=== PATIENT | female | born 1975 | race Caucasian/White ===

== ENCOUNTER 2016-10-05 21:44 | Emergency (ER) | payer OTHER ==
[2016-10-05] MEDS ORDERED: HYDROmorphone 1 MG/ML 1 ML SYRINGE IVP STA ×2 (22:26→23:46)
[2016-10-05] MEDS ORDERED: ONDANSETRON 4 MG/2 ML VIAL IVP STA (22:27)
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
[2016-10-05 22:32] VITALS: TEMP 97.7
--- NOTE | 2016-10-05 23:14 | XR ---
EXAMINATION TYPE: XR chest 2V DATE OF EXAM: 10/05/2016 11:09 PM COMPARISON: NONE HISTORY: Cough and bronchitis TECHNIQUE: Frontal and lateral views of the chest are obtained. FINDINGS: There is no heart failure nor confluent pneumonic infiltrate. There are no hilar masses. C ostophrenic angles are clear. Bony thorax appears intact. IMPRESSION: No active cardiopulmonary disease.
--- NOTE | 2016-10-05 23:15 | XR ---
EXAMINATION TYPE: XR tibia fibula RT DATE OF EXAM: 10/05/2016 11:09 PM COMPARISON: NONE HISTORY: Leg pain TECHNIQUE: 4 views FINDINGS: There is a transverse fracture of the proximal shaft of the tibia. This is 3 cm from the kn ee joint and fracture line also extends to the articular surface. There is a knee joint effusion. Pro ximal fibula is intact. IMPRESSION: Comminuted fracture of the proximal tibia with intra-articular extension. Knee joint effu lyudmila.
[2016-10-05] MEDS ORDERED: SODIUM CHLORIDE 0.9% 1,000 ML IV SCH (23:45)
[2016-10-05 23:51] LABS: Basophils % (A) 0 %; CH 28.3; CHCM 32.2; Eosinophils # (A) 0.1 k/uL (0-0.7); Eosinophils % (A) 1 %; HCT 36.9 % (34.0-46.0); HDW 2.77; HGB 11.8 gm/dL (11.4-16.0); Luc # (Auto) 0.05; Luc % (Auto) 0; Lymphocytes # (A) 0.5 k/uL (1.0-4.8); Lymphocytes % (A) 3 %; MCH 28.3 pg (25.0-35.0); MCV 88.3 fL (80.0-100.0); Mean Platelet Volume 7.6; Monocytes # (A) 0.5 k/uL (0-1.0); Monocytes % (A) 3 %; Neutrophils # (A) 15.3 k/uL (1.3-7.7); Neutrophils % (A) 93 %; RBC 4.18 m/uL (3.80-5.40); WBC 16.4 k/uL (3.8-10.6); WBC (Perox) 17.43
[2016-10-06 00:02] LABS: Anion Gap 12 mmol/L; Blood Urea Nitrogen 9 mg/dL (7-17); Calcium 9.3 mg/dL (8.4-10.2); Carbon Dioxide 22 mmol/L (22-30); Chloride 107 mmol/L (98-107); Glucose 117 mg/dL (74-99); Non-African American GFR(MDRD) >60 (>60 ml/min/1.73 sqM); Potassium 4.3 mmol/L (3.5-5.1); Sodium 141 mmol/L (137-145)
[2016-10-06 00:09] VITALS: BP 166/97; PULSE 70; RESP 14
== END 2016-10-06 00:25 ==
LOC: EC 21:44
DX: S82.101A Unspecified fracture of upper end of right tibia, initial encounter for closed fracture (principal); I10 Essential (primary) hypertension; M19.90 Unspecified osteoarthritis, unspecified site; F31.9 Bipolar disorder, unspecified; M54.9 Dorsalgia, unspecified; Z79.899 Other long term (current) drug therapy; Z88.1 Allergy status to other antibiotic agents; F17.200 Nicotine dependence, unspecified, uncomplicated; V03.09XA Pedestrian with other conveyance injured in collision with car, pick-up truck or van in nontraffic accident, initial encounter; Y93.01 Activity, walking, marching and hiking; Y92.414 Local residential or business street as the place of occurrence of the external cause; Z79.1 Long term (current) use of non-steroidal anti-inflammatories (NSAID); M25.461 Effusion, right knee
CPT/HCPCS: 96374 ×2; 96375; 36415; 93005; 80048; 85025; 71020; 73590; 99285; J2405; J1170 ×2

== ENCOUNTER 2016-10-10 17:56 | Emergency (ER) | payer SELFPAY ==
[2016-10-10 18:03] VITALS: RESP 20
[2016-10-10] MEDS ORDERED: HYDROmorphone 1 MG/ML 1 ML SYRINGE IM STA ×2 (18:21→20:08)
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
--- NOTE | 2016-10-10 19:15 | XR ---
EXAMINATION TYPE: XR tibia fibula RT DATE OF EXAM: 10/10/2016 7:10 PM COMPARISON: 10/05/2016 HISTORY: Postop TECHNIQUE: 4 views FINDINGS: There is a plate with screws fixing the comminuted proximal tibial fracture in anatomic pos ition. Ankle joint is anatomic. Knee joint is anatomic. IMPRESSION: Satisfactory reduction of the comminuted tibial fracture. I see no complicating process.
--- NOTE | 2016-10-10 19:17 | XR ---
EXAMINATION TYPE: XR knee complete RT DATE OF EXAM: 10/10/2016 7:10 PM COMPARISON: 10/05/2016 HISTORY: Postop and fall today TECHNIQUE: 3 views FINDINGS: There is a plate with multiple screws fixing the comminuted fracture of the proximal tibia in anatomic position. There is no dislocation there is a knee joint effusion. IMPRESSION: Anatomic reduction. I see no complicating process. There is satisfactory reduction compar ed to first exam.
[2016-10-10 20:58] VITALS: BP 112/66; PULSE 102; TEMP 97.2
== END 2016-10-10 20:58 | disposition home or self-care (01) ==
LOC: EC 17:56
DX: M79.604 Pain in right leg (principal); W19.XXXA Unspecified fall, initial encounter; S82.201A Unspecified fracture of shaft of right tibia, initial encounter for closed fracture; V09.9XXA Pedestrian injured in unspecified transport accident, initial encounter; Z98.890 Other specified postprocedural states; I10 Essential (primary) hypertension; F31.9 Bipolar disorder, unspecified; M19.90 Unspecified osteoarthritis, unspecified site; F17.200 Nicotine dependence, unspecified, uncomplicated; Z79.1 Long term (current) use of non-steroidal anti-inflammatories (NSAID); Z79.899 Other long term (current) drug therapy; Z88.1 Allergy status to other antibiotic agents
CPT/HCPCS: 73590; 73562; 99284; 96372 ×2; J1170

== ENCOUNTER 2016-12-13 11:19 | Emergency (ER) | payer SELFPAY ==
[2016-12-13] MEDS ORDERED: SODIUM CHLORIDE 0.9% 1,000 ML IV STA ×2 (11:57)
[2016-12-13] MEDS ORDERED: HYDROmorphone 1 MG/ML 1 ML SYRINGE IVP STA ×3 (11:57→13:54)
[2016-12-13] MEDS ORDERED: ACETAMINOPHEN TAB 500 MG TAB PO STA (11:57)
[2016-12-13] MEDS ORDERED: VANCOMYCIN 1,000 MG in SODIUM CHLORIDE 0.9% 250 ML IVPB STA (11:58)
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
[2016-12-13 12:20] LABS: Anisocytosis Slight; Basophils % (A) 0 %; CH 26.8; CHCM 31.2; Eosinophils # (A) 0.1 k/uL (0-0.7); Eosinophils % (A) 1 %; HCT 34.1 % (34.0-46.0); HDW 2.75; Hypochromasia Slight; Luc # (Auto) 0.11; Luc % (Auto) 1; Lymphocytes # (A) 0.3 k/uL (1.0-4.8); Lymphocytes % (A) 2 %; MCH 27.7 pg (25.0-35.0); MCHC 32.2 g/dL (31.0-37.0); Monocytes # (A) 0.5 k/uL (0-1.0); Monocytes % (A) 3 %; Neutrophils # (A) 15.2 k/uL (1.3-7.7); Neutrophils % (A) 94 %; RBC 3.96 m/uL (3.80-5.40); RDW 17.2 % (11.5-15.5); WBC 16.2 k/uL (3.8-10.6); WBC (Perox) 17.12
[2016-12-13 12:32] LABS: ALT 195 U/L (9-52); AST 123 U/L (14-36); Alkaline Phosphatase 146 U/L (38-126); Anion Gap 10 mmol/L; Blood Urea Nitrogen 9 mg/dL (7-17); Calcium 9.1 mg/dL (8.4-10.2); Carbon Dioxide 20 mmol/L (22-30); Chloride 104 mmol/L (98-107); Glucose 122 mg/dL (74-99); Non-African American GFR(MDRD) >60 (>60 ml/min/1.73 sqM); Sodium 134 mmol/L (137-145); Total Protein 6.8 g/dL (6.3-8.2)
[2016-12-13 12:34] LABS: INR 1.6 (<1.1); Partial Thromboplastin Time 31.6 sec (22.0-30.0); Prothrombin Time 15.4 sec (9.0-12.0)
--- NOTE | 2016-12-13 12:54 | XR ---
EXAMINATION TYPE: XR tibia fibula RT DATE OF EXAM ORDERED: 12/13/2016 12:44 PM HISTORY: Pain. COMPARISON: Previous study dated 10/10/2016. FINDINGS: Sideplate and screw fixation of the proximal right tibia appear unchanged from previous. T here is a comminuted fracture the proximal tibia. This appears unchanged from previous. Fracture line s are still clearly visible. There is some mild callus formation. IMPRESSION: 1. NO INTERVAL CHANGE IN THE APPEARANCE OF THE PATIENT'S PROXIMAL TIBIAL FRACTURE. 2. RADIOGRAPHIC BONE UNION IS NOT YET COMPLETE.
--- NOTE | 2016-12-13 12:55 | XR ---
EXAMINATION TYPE: XR chest 2V DATE OF EXAM: 12/13/2016 12:44 PM HISTORY: Weakness. REFERENCE: Previous study dated 10/05/2016. FINDINGS: Mildly enlarged. The lungs are clear. Pleural spaces are clear.. IMPRESSION: CARDIOMEGALY.
[2016-12-13 13:03] LABS: C Reactive Protein 165.9 mg/L (<10.0)
[2016-12-13 13:07] LABS: Erythrocyte Sedimentation Rate 32 mm/hr (0-20)
[2016-12-13 13:18] VITALS: PULSE 98; TEMP 99.1
[2016-12-13 14:03] VITALS: BP 116/74; RESP 18
== END 2016-12-13 14:03 | disposition short-term general hospital (02) ==
LOC: EC 11:19
DX: T81.4XXA Infection following a procedure, initial encounter (principal); M96.671 Fracture of tibia or fibula following insertion of orthopedic implant, joint prosthesis, or bone plate, right leg; I10 Essential (primary) hypertension; M19.90 Unspecified osteoarthritis, unspecified site; F31.9 Bipolar disorder, unspecified; F17.200 Nicotine dependence, unspecified, uncomplicated; Z79.1 Long term (current) use of non-steroidal anti-inflammatories (NSAID); Z79.899 Other long term (current) drug therapy; Z88.1 Allergy status to other antibiotic agents; Z98.890 Other specified postprocedural states; Y83.8 Other surgical procedures as the cause of abnormal reaction of the patient, or of later complication, without mention of misadventure at the time of the procedure
CPT/HCPCS: 99285; 96365; 96375; 96376; 96361; 36415; 80053; 85652; 83605; 85025; 85610; 85730; 86140; 87040; 87070; 87205; 71020; 73590; J3370; J1170; 87077; 87186

== ENCOUNTER 2016-12-31 20:08 | Emergency (ER) | payer OTHER ==
[2016-12-31 20:31] VITALS: RESP 18
[2016-12-31 21:35] LABS: Anisocytosis Slight; Basophils # (A) 0.1 k/uL (0-0.2); Basophils % (A) 1 %; CH 25.2; CHCM 29.9; Eosinophils # (A) 0.3 k/uL (0-0.7); Eosinophils % (A) 3 %; HCT 28.8 % (34.0-46.0); Hypochromasia Marked; Luc # (Auto) 0.32; Luc % (Auto) 4; Lymphocytes # (A) 1.8 k/uL (1.0-4.8); Lymphocytes % (A) 19 %; MCH 26.2 pg (25.0-35.0); MCHC 31.1 g/dL (31.0-37.0); MCV 84.2 fL (80.0-100.0); Mean Platelet Volume 6.8; Monocytes # (A) 0.8 k/uL (0-1.0); Monocytes % (A) 8 %; Neutrophils % (A) 65 %; RBC 3.42 m/uL (3.80-5.40); RDW 17.1 % (11.5-15.5); WBC 9.2 k/uL (3.8-10.6)
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
[2016-12-31 21:46] LABS: ALT 20 U/L (9-52); AST 28 U/L (14-36); Alkaline Phosphatase 156 U/L (38-126); Anion Gap 7 mmol/L; Blood Urea Nitrogen 3 mg/dL (7-17); Calcium 9.1 mg/dL (8.4-10.2); Carbon Dioxide 26 mmol/L (22-30); Chloride 104 mmol/L (98-107); Glucose 87 mg/dL (74-99); Non-African American GFR(MDRD) >60 (>60 ml/min/1.73 sqM); Potassium 3.7 mmol/L (3.5-5.1); Sodium 137 mmol/L (137-145); Total Bilirubin 0.5 mg/dL (0.2-1.3)
[2016-12-31] MEDS ORDERED: SODIUM CHLORIDE 0.9% 1,000 ML IV ONE (22:01)
[2016-12-31] MEDS ORDERED: traMADol 50 MG TAB PO STA (22:09)
[2016-12-31 22:53] LABS: Appearance,Urine Clear (Clear); Bilirubin,Urine Negative (Negative); Glucose,Urine (UA) Negative (Negative); Ketones,Urine Negative (Negative); Leukocyte Esterase,Urine Negative (Negative); Nitrite,Urine Negative (Negative); Protein,Urine Negative (Negative); Specific Gravity,Urine 1.002 (1.001-1.035); UA Billing (MACRO vs. MICRO) CHEM; Urobilinogen,Urine <2.0 mg/dL (<2.0)
--- NOTE | 2017-01-01 00:38 | CT ---
EXAM: CT Lumbar Spine Without Intravenous Contrast. CLINICAL HISTORY: Reason: Pain TECHNIQUE: Axial computed tomography images of the lumbar spine without intravenous contrast. CTDI is 19.3 mGy and DLP is 537.6 mGy-cm This CT exam was performed using one or more of the following dose reduction techniques: automated exposure control, adjustment of the mA and/or kV according to patient size, and/or use of iterative reconstruction technique. COMPARISON: No relevant prior studies available. FINDINGS: Vertebrae: No acute fracture, dislocation, or subluxation within the lumbar spine. No osseous destructive lesion. At L4-L5, there is at least a mild degree of central canal stenosis secondary to diffuse bulging of the intervertebral disc as well as mild ligamentum flavum redundancy and posterior epidural lipomatosis. At L3-L4, there is a broad-based left foraminal disc protrusion which causes moderate narrowing of the neural foramina and flattens the exiting left L3 nerve root. Discs/spinal canal/neural foramina: See above. Soft tissues: See above. IMPRESSION: 1. No acute findings. 2. Left foraminal disc protrusion at L3-L4 which moderately narrows the neural foramen and causes flattening of the exiting left L3 nerve root. 3. At least a mild degree of degenerative central canal stenosis at L4- L5.
[2017-01-01 01:43] VITALS: BP 137/83; PULSE 77; TEMP 98.1
== END 2017-01-01 01:55 | disposition home or self-care (01) ==
LOC: EC 20:08
DX: R19.7 Diarrhea, unspecified (principal); R32 Unspecified urinary incontinence; I10 Essential (primary) hypertension; M19.90 Unspecified osteoarthritis, unspecified site; F31.9 Bipolar disorder, unspecified; F17.200 Nicotine dependence, unspecified, uncomplicated; Z79.1 Long term (current) use of non-steroidal anti-inflammatories (NSAID); Z79.899 Other long term (current) drug therapy; Z88.1 Allergy status to other antibiotic agents; Z87.81 Personal history of (healed) traumatic fracture
CPT/HCPCS: 36415; 72131; 80053; 80306; 81003; 82272; 85025; 96360; 99284

== ENCOUNTER 2017-01-11 15:17 | Emergency (ER) | payer OTHER ==
[2017-01-11] MEDS ORDERED: HYDROmorphone 1 MG/ML 1 ML SYRINGE IVP STA ×2 (16:01→18:10)
[2017-01-11 16:15] LABS: Anisocytosis Slight; Basophils # (A) 0.1 k/uL (0-0.2); Basophils % (A) 1 %; CH 24.7; CHCM 29.9; Eosinophils # (A) 0.1 k/uL (0-0.7); Eosinophils % (A) 1 %; HDW 3.48; Hypochromasia Marked; Luc # (Auto) 0.21; Luc % (Auto) 2; Lymphocytes # (A) 1.4 k/uL (1.0-4.8); Lymphocytes % (A) 14 %; MCH 24.9 pg (25.0-35.0); MCHC 30.1 g/dL (31.0-37.0); MCV 82.5 fL (80.0-100.0); Monocytes # (A) 0.6 k/uL (0-1.0); Monocytes % (A) 6 %; Neutrophils # (A) 7.3 k/uL (1.3-7.7); Neutrophils % (A) 76 %; Poikilocytosis Slight; RDW 16.8 % (11.5-15.5); WBC 9.6 k/uL (3.8-10.6); WBC (Perox) 9.35
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
[2017-01-11 16:25] LABS: Anion Gap 12 mmol/L; Blood Urea Nitrogen 7 mg/dL (7-17); Calcium 9.4 mg/dL (8.4-10.2); Carbon Dioxide 20 mmol/L (22-30); Chloride 112 mmol/L (98-107); Glucose 138 mg/dL (74-99); Magnesium 1.8 mg/dL (1.6-2.3); Non-African American GFR(MDRD) >60 (>60 ml/min/1.73 sqM); Potassium 3.6 mmol/L (3.5-5.1); Sodium 144 mmol/L (137-145)
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
[2017-01-11 16:39] LABS: C Reactive Protein <5.0 mg/L (<10.0)
[2017-01-11] MEDS ORDERED: SODIUM CHLORIDE 0.9% 1,000 ML IV STA ×2 (16:40)
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
[2017-01-11 17:10] LABS: Erythrocyte Sedimentation Rate 53 mm/hr (0-20)
[2017-01-11 19:57] VITALS: BP 162/100; PULSE 89; RESP 16; TEMP 97.5
== END 2017-01-11 19:57 | disposition home or self-care (01) ==
LOC: EC 15:17
DX: M79.604 Pain in right leg (principal); I10 Essential (primary) hypertension; M19.90 Unspecified osteoarthritis, unspecified site; F31.9 Bipolar disorder, unspecified; F17.200 Nicotine dependence, unspecified, uncomplicated; Z79.899 Other long term (current) drug therapy; Z88.1 Allergy status to other antibiotic agents; Z87.81 Personal history of (healed) traumatic fracture
CPT/HCPCS: 99284; 96374; 96376; 36415; 80048; 85652; 83605; 83735; 85025; 86140; 87040; 87077; 87186; 73590; 93971; J1170

== ENCOUNTER 2017-01-19 10:02 | Emergency (ER) | payer SELFPAY ==
[2017-01-19 10:35] VITALS: RESP 18
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
[2017-01-19 11:55] VITALS: BP 161/100; PULSE 88; TEMP 97.4
== END 2017-01-19 11:53 | disposition home or self-care (01) ==
LOC: EC 10:02
DX: M25.561 Pain in right knee (principal); G89.29 Other chronic pain; I10 Essential (primary) hypertension; M19.90 Unspecified osteoarthritis, unspecified site; F31.9 Bipolar disorder, unspecified; F17.200 Nicotine dependence, unspecified, uncomplicated; Z88.1 Allergy status to other antibiotic agents; Z79.1 Long term (current) use of non-steroidal anti-inflammatories (NSAID); Z79.899 Other long term (current) drug therapy
CPT/HCPCS: 99283

== ENCOUNTER 2017-01-24 15:51 | Emergency (ER) | payer SELFPAY ==
[2017-01-24] MEDS ORDERED: HYDROmorphone 1 MG/ML 1 ML SYRINGE IVP STA (16:48)
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
[2017-01-24 18:05] VITALS: TEMP 98.5
[2017-01-24 18:38] VITALS: BP 180/108; PULSE 94; RESP 18
== END 2017-01-24 18:36 | disposition home or self-care (01) ==
LOC: EC 15:51
DX: M25.571 Pain in right ankle and joints of right foot (principal); I10 Essential (primary) hypertension; M19.90 Unspecified osteoarthritis, unspecified site; F41.9 Anxiety disorder, unspecified; Z88.1 Allergy status to other antibiotic agents; Z79.1 Long term (current) use of non-steroidal anti-inflammatories (NSAID); Z79.899 Other long term (current) drug therapy
CPT/HCPCS: 99283; 96374; J1170

== ENCOUNTER 2017-03-28 16:57 | Emergency (ER) | payer OTHER ==
[2017-03-28] MEDS ORDERED: HYDROmorphone 1 MG/ML 1 ML SYRINGE IM STA (17:40)
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
--- NOTE | 2017-03-28 18:49 | XR ---
EXAMINATION TYPE: XR knee complete RT DATE OF EXAM: 03/28/2017 COMPARISON: 10/10/2016 HISTORY: Pain TECHNIQUE: 3 views FINDINGS: There is a plate with screws fixing old fracture of the proximal tibia. Fragments are in re asonable anatomic position. There is satisfactory healing compared to last exam. I see no acute fract ure. There is mild knee joint effusion. IMPRESSION: Mild knee joint effusion. Healing fracture of the proximal tibia without significant sánchez ge in position compared to last exam. No acute fracture.
[2017-03-28 19:31] VITALS: BP 122/80; PULSE 95; RESP 18; TEMP 98.4
== END 2017-03-28 19:31 | disposition home or self-care (01) ==
LOC: EC 16:57
DX: M25.461 Effusion, right knee (principal); I10 Essential (primary) hypertension; M19.90 Unspecified osteoarthritis, unspecified site; F17.200 Nicotine dependence, unspecified, uncomplicated; Z79.1 Long term (current) use of non-steroidal anti-inflammatories (NSAID); Z79.899 Other long term (current) drug therapy; Z88.1 Allergy status to other antibiotic agents; Z87.81 Personal history of (healed) traumatic fracture; Z98.890 Other specified postprocedural states; Z95.828 Presence of other vascular implants and grafts
CPT/HCPCS: 73562; 99284; 96372; J1170

== ENCOUNTER → 2017-03-29 | Outpatient (CLI) | payer OTHER ==
[2017-03-29 13:19] LABS: Anisocytosis Slight; Basophils # (A) 0.1 k/uL (0-0.2); Basophils % (A) 1 %; CH 23.1; CHCM 29.6; Eosinophils # (A) 0.1 k/uL (0-0.7); Eosinophils % (A) 2 %; HCT 33.6 % (34.0-46.0); HDW 3.01; HGB 10.3 gm/dL (11.4-16.0); Hypochromasia Marked; Luc # (Auto) 0.23; Luc % (Auto) 3; Lymphocytes # (A) 1.9 k/uL (1.0-4.8); Lymphocytes % (A) 25 %; MCH 24.1 pg (25.0-35.0); MCHC 30.7 g/dL (31.0-37.0); MCV 78.4 fL (80.0-100.0); Mean Platelet Volume 6.6; Microcytosis Slight; Monocytes # (A) 0.6 k/uL (0-1.0); Monocytes % (A) 7 %; Neutrophils # (A) 4.8 k/uL (1.3-7.7); Neutrophils % (A) 63 %; RBC 4.29 m/uL (3.80-5.40); RDW 19.6 % (11.5-15.5); WBC 7.7 k/uL (3.8-10.6); WBC (Perox) 7.83
[2017-03-29 13:34] LABS: ALT 33 U/L (9-52); AST 26 U/L (14-36); Anion Gap 10 mmol/L; Blood Urea Nitrogen 7 mg/dL (7-17); C Reactive Protein 9.1 mg/L (<10.0); Carbon Dioxide 24 mmol/L (22-30); Chloride 105 mmol/L (98-107); Creatine Kinase 88 U/L (30-135); GGT 26 U/L (12-43); Glucose 81 mg/dL (74-99); Non-African American GFR(MDRD) >60 (>60 ml/min/1.73 sqM); Potassium 4.1 mmol/L (3.5-5.1); Sodium 139 mmol/L (137-145); Total Protein 6.8 g/dL (6.3-8.2)
[2017-03-29 14:45] LABS: Erythrocyte Sedimentation Rate 20 mm/hr (0-20)
== END | disposition home or self-care (01) ==
LOC: LABWHC1 12:34
PROVIDERS: ATTEND Physical Medicine & Rehabilitation
DX: M00.9 Pyogenic arthritis, unspecified (principal); R26.89 Other abnormalities of gait and mobility
CPT/HCPCS: 36415; 80051; 82040; 82550; 82565; 82947; 82977; 84155; 84450; 84460; 84520; 85025; 85652; 86140

== ENCOUNTER 2017-05-09 20:27 | Emergency (ER) | payer OTHER ==
[2017-05-09 20:45] VITALS: BP 132/77; PULSE 97; RESP 18; TEMP 97.9
[2017-05-09] MEDS ORDERED: KETOROLAC 60 MG/2 ML VIAL IM STA (20:56)
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
--- NOTE | 2017-05-09 21:21 | XR ---
EXAMINATION TYPE: XR tibia fibula RT DATE OF EXAM: 05/09/2017 COMPARISON: 01/11/2017 HISTORY: Leg pain TECHNIQUE: 2 views FINDINGS: There is a plate with screws fixing an old fracture of the proximal tibia. Fracture line is still visible. Ankle joint appears anatomic. IMPRESSION: Healing fracture of the proximal tibia without change in position compared to old exam.
== END 2017-05-09 22:10 | disposition home or self-care (01) ==
LOC: EC 20:27
DX: S80.811D Abrasion, right lower leg, subsequent encounter (principal); M79.89 Other specified soft tissue disorders; I10 Essential (primary) hypertension; M19.90 Unspecified osteoarthritis, unspecified site; F32.9 Major depressive disorder, single episode, unspecified; F41.9 Anxiety disorder, unspecified; F17.200 Nicotine dependence, unspecified, uncomplicated; Z79.1 Long term (current) use of non-steroidal anti-inflammatories (NSAID); Z79.899 Other long term (current) drug therapy; Z88.1 Allergy status to other antibiotic agents; V89.2XXD Person injured in unspecified motor-vehicle accident, traffic, subsequent encounter
CPT/HCPCS: 99283; 96372; 73590; J1885

== ENCOUNTER 2017-05-24 19:22 | Emergency (ER) | payer OTHER ==
[2017-05-24] MEDS ORDERED: ONDANSETRON 4 MG/2 ML VIAL IVP STA ×2 (21:14→23:03)
[2017-05-24] MEDS ORDERED: SODIUM CHLORIDE 0.9% 1,000 ML IV STA (21:14)
[2017-05-24] MEDS ORDERED: FAMOTIDINE 20 MG/2 ML VIAL IV STA (21:15)
[2017-05-24 21:27] LABS: Anisocytosis Slight; Basophils # (A) 0.1 k/uL (0-0.2); Basophils % (A) 1 %; CH 25.7; CHCM 31.8; Eosinophils % (A) 0 %; HCT 35.3 % (34.0-46.0); HDW 2.78; HGB 11.2 gm/dL (11.4-16.0); Hypochromasia Slight; Luc # (Auto) 0.18; Luc % (Auto) 2; Lymphocytes # (A) 1.8 k/uL (1.0-4.8); Lymphocytes % (A) 16 %; MCH 25.7 pg (25.0-35.0); MCHC 31.6 g/dL (31.0-37.0); MCV 81.4 fL (80.0-100.0); Mean Platelet Volume 7.8; Microcytosis Slight; Monocytes # (A) 0.7 k/uL (0-1.0); Monocytes % (A) 6 %; Neutrophils # (A) 8.4 k/uL (1.3-7.7); Neutrophils % (A) 75 %; RBC 4.34 m/uL (3.80-5.40); RDW 19.8 % (11.5-15.5); WBC 11.1 k/uL (3.8-10.6); WBC (Perox) 11.14
[2017-05-24 21:41] LABS: ALT 24 U/L (9-52); AST 19 U/L (14-36); Alkaline Phosphatase 95 U/L (38-126); Amylase 48 U/L (30-110); Anion Gap 8 mmol/L; Blood Urea Nitrogen 8 mg/dL (7-17); Calcium 9.1 mg/dL (8.4-10.2); Carbon Dioxide 24 mmol/L (22-30); Chloride 106 mmol/L (98-107); Glucose 88 mg/dL (74-99); Non-African American GFR(MDRD) >60 (>60 ml/min/1.73 sqM); Potassium 3.7 mmol/L (3.5-5.1); Sodium 138 mmol/L (137-145); Total Bilirubin 0.4 mg/dL (0.2-1.3); Total Protein 6.7 g/dL (6.3-8.2)
[2017-05-24 21:46] LABS: Appearance,Urine Cloudy (Clear); Bacteria,Urine Rare /hpf; Bilirubin,Urine Negative (Negative); Glucose,Urine (UA) Negative (Negative); Ketones,Urine Negative (Negative); Leukocyte Esterase,Urine Negative (Negative); Nitrite,Urine Negative (Negative); PH, Urine 6.5 (5.0-8.0); Particle Count 2552; Protein,Urine Negative (Negative); RBC,Urine 1 /hpf (0-5); Specific Gravity,Urine 1.005 (1.001-1.035); Squamous Epithelial Cell,Urine 8 /hpf (0-4); UA Billing (MACRO vs. MICRO) MICRO; Urobilinogen,Urine <2.0 mg/dL (<2.0); WBC,Urine 2 /hpf (0-5)
--- NOTE | 2017-05-24 22:07 | XR ---
EXAMINATION TYPE: XR KUB DATE OF EXAM: 05/24/2017 COMPARISON: NONE HISTORY: Abdominal pain TECHNIQUE: 2 views FINDINGS: There is no sign of intestinal obstruction or pneumoperitoneum. There are a few colonic air -fluid levels. Lung bases are clear. There are no pathologic calcifications over the kidneys. IMPRESSION: Colonic air-fluid levels could relate to diarrhea. No free air.
[2017-05-24 22:26] VITALS: RESP 18
[2017-05-24] MEDS ORDERED: METOCLOPRAMIDE 5 MG/ML 2 ML VIAL IVP STA (22:27)
[2017-05-24] MEDS ORDERED: diphenhydrAMINE 50 MG/ML 1 ML VIAL IVP STA (22:27)
[2017-05-24] MEDS ORDERED: SODIUM CHLORIDE 0.9% 500 ML IV ONE (22:27)
[2017-05-24] MEDS ORDERED: ONDANSETRON 4 MG ODT STARTER PACK 2 TAB BTL PO STA (23:03)
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
[2017-05-24 23:15] VITALS: BP 147/86; PULSE 86; TEMP 98.1
== END 2017-05-24 23:18 | disposition home or self-care (01) ==
LOC: EC 19:22
DX: R11.2 Nausea with vomiting, unspecified (principal); R10.84 Generalized abdominal pain; R19.7 Diarrhea, unspecified; I10 Essential (primary) hypertension; F41.9 Anxiety disorder, unspecified; F32.9 Major depressive disorder, single episode, unspecified; F17.200 Nicotine dependence, unspecified, uncomplicated; Z86.14 Personal history of Methicillin resistant Staphylococcus aureus infection; Z79.899 Other long term (current) drug therapy; Z88.1 Allergy status to other antibiotic agents
CPT/HCPCS: 99284; 96374; 96375 ×3; 96376; 96361; 36415; 80053; 82150; 83690; 85025; 81001; 74000; J1200; J2765; J2405; S0119

== ENCOUNTER 2017-05-26 10:57 | Emergency (ER) | payer OTHER ==
[2017-05-26 11:17] VITALS: RESP 18
[2017-05-26] MEDS ORDERED: SODIUM CHLORIDE 0.9% 1,000 ML IV STA (11:45)
[2017-05-26] MEDS ORDERED: ONDANSETRON 4 MG/2 ML VIAL IVP STA (11:45)
[2017-05-26] MEDS ORDERED: METOCLOPRAMIDE 5 MG/ML 2 ML VIAL IVP STA (11:45)
[2017-05-26] MEDS ORDERED: SODIUM CHLORIDE 0.9% 500 ML IV STA (11:45)
[2017-05-26] MEDS ORDERED: FAMOTIDINE 20 MG/2 ML VIAL IV STA (11:49)
[2017-05-26 12:19] LABS: Anisocytosis Slight; Basophils # (A) 0.1 k/uL (0-0.2); Basophils % (A) 1 %; CH 25.4; CHCM 31.3; Eosinophils # (A) 0.1 k/uL (0-0.7); Eosinophils % (A) 1 %; HCT 37.4 % (34.0-46.0); HDW 2.79; HGB 12.2 gm/dL (11.4-16.0); Hypochromasia Slight; Luc # (Auto) 0.16; Luc % (Auto) 2; Lymphocytes # (A) 1.6 k/uL (1.0-4.8); Lymphocytes % (A) 17 %; MCH 26.5 pg (25.0-35.0); MCHC 32.5 g/dL (31.0-37.0); MCV 81.5 fL (80.0-100.0); Mean Platelet Volume 7.2; Microcytosis Slight; Monocytes # (A) 0.5 k/uL (0-1.0); Monocytes % (A) 6 %; Neutrophils % (A) 74 %; RBC 4.59 m/uL (3.80-5.40); RDW 18.7 % (11.5-15.5); WBC 9.4 k/uL (3.8-10.6); WBC (Perox) 9.52
[2017-05-26 12:35] LABS: ALT 29 U/L (9-52); AST 21 U/L (14-36); Alkaline Phosphatase 98 U/L (38-126); Amylase 46 U/L (30-110); Anion Gap 11 mmol/L; Blood Urea Nitrogen 5 mg/dL (7-17); C Reactive Protein <5.0 mg/L (<10.0); Calcium 9.1 mg/dL (8.4-10.2); Carbon Dioxide 23 mmol/L (22-30); Chloride 105 mmol/L (98-107); Glucose 96 mg/dL (74-99); Non-African American GFR(MDRD) >60 (>60 ml/min/1.73 sqM); Potassium 3.2 mmol/L (3.5-5.1); Sodium 139 mmol/L (137-145); Total Bilirubin 0.4 mg/dL (0.2-1.3); Total Protein 6.7 g/dL (6.3-8.2)
[2017-05-26] MEDS ORDERED: SODIUM CHLORIDE 0.9% 1,000 ML IV ONE (13:18)
[2017-05-26 13:24] VITALS: BP 153/96; PULSE 88; TEMP 98.6
[2017-05-26 14:02] LABS: Appearance,Urine Clear (Clear); Bilirubin,Urine Negative (Negative); Glucose,Urine (UA) Negative (Negative); Ketones,Urine Negative (Negative); Leukocyte Esterase,Urine Negative (Negative); Nitrite,Urine Negative (Negative); Protein,Urine Negative (Negative); Specific Gravity,Urine 1.004 (1.001-1.035); UA Billing (MACRO vs. MICRO) CHEM; Urobilinogen,Urine <2.0 mg/dL (<2.0)
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
== END 2017-05-26 14:35 | disposition left against medical advice (07) ==
LOC: EC 10:57
DX: R11.2 Nausea with vomiting, unspecified (principal); R51 Headache; L02.211 Cutaneous abscess of abdominal wall; I10 Essential (primary) hypertension; F41.9 Anxiety disorder, unspecified; F32.9 Major depressive disorder, single episode, unspecified; F17.200 Nicotine dependence, unspecified, uncomplicated; Z86.14 Personal history of Methicillin resistant Staphylococcus aureus infection; Z79.899 Other long term (current) drug therapy; Z88.1 Allergy status to other antibiotic agents
CPT/HCPCS: 99284; 96374; 96375 ×2; 96361 ×3; 36415; 80053; 82150; 83690; 85025; 86140; 81003; 81025; 80306; J2765; J2405

== ENCOUNTER 2017-07-21 20:33 | Emergency (ER) | payer OTHER ==
[2017-07-21 20:54] VITALS: RESP 20
[2017-07-21] MEDS ORDERED: KETOROLAC 30 MG/ML 1 ML VIAL IM STA (21:21)
--- NOTE | 2017-07-21 21:44 | XR ---
EXAMINATION TYPE: XR knee complete RT DATE OF EXAM: 07/21/2017 COMPARISON: 03/28/2017 HISTORY: Knee pain TECHNIQUE: 3 views FINDINGS: There is old ununited fracture of the proximal tibia. Fracture line still visible. Distal femur is i ntact. There is mild knee joint effusion. Patella is intact. There is been removal of the plate and s crews compared to old exam. IMPRESSION: Old ununited fracture. Fragments are in anatomic reasonable position. No change in positi on compared to old exam. Stable small knee joint effusion.
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
[2017-07-21 22:04] VITALS: BP 145/73; PULSE 98; TEMP 97
== END 2017-07-21 22:04 | disposition home or self-care (01) ==
LOC: EC 20:33
DX: M25.461 Effusion, right knee (principal); I10 Essential (primary) hypertension; F41.9 Anxiety disorder, unspecified; F31.9 Bipolar disorder, unspecified; S82.101K Unspecified fracture of upper end of right tibia, subsequent encounter for closed fracture with nonunion; F17.200 Nicotine dependence, unspecified, uncomplicated; Z86.14 Personal history of Methicillin resistant Staphylococcus aureus infection; W01.0XXA Fall on same level from slipping, tripping and stumbling without subsequent striking against object, initial encounter; Y92.009 Unspecified place in unspecified non-institutional (private) residence as the place of occurrence of the external cause
CPT/HCPCS: 73562; 99283; 96372; J1885

== ENCOUNTER 2017-07-23 21:25 | Emergency (ER) | payer OTHER ==
[2017-07-23 21:29] VITALS: BP 159/88; PULSE 90; RESP 20; TEMP 98.2
[2017-07-23] MEDS ORDERED: HYDROcodone/APAP 5-325MG 1 EACH TAB PO STA (21:54)
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
== END 2017-07-23 21:50 | disposition home or self-care (01) ==
LOC: EC 21:25
DX: M25.461 Effusion, right knee (principal); I10 Essential (primary) hypertension; M19.90 Unspecified osteoarthritis, unspecified site; F41.9 Anxiety disorder, unspecified; F32.9 Major depressive disorder, single episode, unspecified; F17.200 Nicotine dependence, unspecified, uncomplicated; Z86.14 Personal history of Methicillin resistant Staphylococcus aureus infection; Z98.890 Other specified postprocedural states; Z79.899 Other long term (current) drug therapy; Z88.1 Allergy status to other antibiotic agents; W19.XXXA Unspecified fall, initial encounter
CPT/HCPCS: 99283

== ENCOUNTER 2017-10-20 16:58 | Emergency (ER) | payer OTHER ==
[2017-10-20 17:15] VITALS: BP 155/74; PULSE 66; RESP 20; TEMP 98.1
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
[2017-10-20] MEDS ORDERED: HYDROcodone/APAP 5-325MG 1 EACH TAB PO STA ×2 (18:24→19:32)
--- NOTE | 2017-10-20 19:12 | US ---
EXAMINATION TYPE: US venous doppler duplex LE RT DATE OF EXAM: 10/20/2017 7:03 PM COMPARISON: Right lower extremity venous ultrasound January 11, 2017 CLINICAL HISTORY: Pain. Right leg pain SIDE PERFORMED: Right TECHNIQUE: The lower extremity deep venous system is examined utilizing real time linear array sonog sully with graded compression, doppler sonography and color-flow sonography. VESSELS IMAGED: External Iliac Vein (EIV) Common Femoral Vein Deep Femoral Vein Greater Saphenous Vein * Femoral Vein Popliteal Vein Small Saphenous Vein * Proximal Calf Veins (* superficial vessels) Right Leg: Negative for DVT Grayscale, color doppler, spectral doppler imaging performed of the deep veins of the right lower ext remity. There is normal flow, compressibility, vascular waveforms. IMPRESSION: No ultrasound evidence for acute DVT in the right lower extremity.
== END 2017-10-20 19:52 | disposition home or self-care (01) ==
LOC: EC 16:58
DX: M79.661 Pain in right lower leg (principal); I10 Essential (primary) hypertension; F31.9 Bipolar disorder, unspecified; F41.9 Anxiety disorder, unspecified; Z86.14 Personal history of Methicillin resistant Staphylococcus aureus infection; F17.210 Nicotine dependence, cigarettes, uncomplicated; Z88.1 Allergy status to other antibiotic agents; Z98.890 Other specified postprocedural states; Z79.899 Other long term (current) drug therapy
CPT/HCPCS: 99284

== ENCOUNTER 2017-10-22 18:36 | Emergency (ER) | payer OTHER ==
[2017-10-22] MEDS ORDERED: MORPHINE SULFATE 4 MG/ML SYRINGE IVP ONE ×2 (19:26→21:05)
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
--- NOTE | 2017-10-22 20:17 | XR ---
EXAMINATION TYPE: XR tibia fibula RT DATE OF EXAM: 10/22/2017 CLINICAL HISTORY: Pain. TECHNIQUE: Two views of the right leg are obtained. COMPARISON: July 21, 2017 FINDINGS: A plate and multiple screws are identified along the medial aspect of the right proximal ti sumaya. There is a fracture present which demonstrates some osseous bridging but there is not complete h ealing at this point. No acute or new finding is identified. IMPRESSION: Fusion hardware is noted in the proximal medial tibia. No acute or new findings identifie d. There appears to be some osseous bridging of the fracture however it remains incompletely healed a t this time.
[2017-10-22 20:33] LABS: Anion Gap 9 mmol/L; Blood Urea Nitrogen 9 mg/dL (7-17); Calcium 9.4 mg/dL (8.4-10.2); Carbon Dioxide 23 mmol/L (22-30); Chloride 111 mmol/L (98-107); Glucose 73 mg/dL (74-99); Potassium 4.2 mmol/L (3.5-5.1); Sodium 143 mmol/L (137-145)
[2017-10-22 20:49] LABS: Basophils # (A) 0.1 k/uL (0-0.2); Basophils % (A) 1 %; Eosinophils # (A) 0.2 k/uL (0-0.7); Eosinophils % (A) 2 %; HCT 36.5 % (34.0-46.0); HGB 10.8 gm/dL (11.4-16.0); Hypochromasia Marked; Lymphocytes # (A) 2.7 k/uL (1.0-4.8); Lymphocytes % (A) 29 %; MCH 25.5 pg (25.0-35.0); MCHC 29.7 g/dL (31.0-37.0); MCV 85.7 fL (80.0-100.0); Monocytes # (A) 0.6 k/uL (0-1.0); Monocytes % (A) 6 %; Neutrophils # (A) 5.4 k/uL (1.3-7.7); Neutrophils % (A) 58 %; Platelet Count 404 k/uL (150-450); Poikilocytosis Slight; RBC 4.26 m/uL (3.80-5.40); WBC 9.3 k/uL (3.8-10.6)
[2017-10-22 20:56] VITALS: RESP 18
[2017-10-22] MEDS ORDERED: SULFAMETH-TMP DS STARTER PACK 2 TAB BTL PO STA (21:05)
[2017-10-22 21:29] VITALS: BP 142/94; PULSE 94; TEMP 97.6
--- NOTE | 2017-10-25 05:49 | CDI ---
Documentation Clarification OP Dear ASHLEY Vasques: Please do addendum to ED report for HPI , Physical exam and MDM. Thank you, Nancy Alvarez Research And Evaluation Analyst If you have any question, Please contact real estate sales manager at [phone] [facility]
== END 2017-10-22 21:29 | disposition home or self-care (01) ==
LOC: EC 18:36
DX: M79.604 Pain in right leg (principal); I10 Essential (primary) hypertension; F31.9 Bipolar disorder, unspecified; F41.9 Anxiety disorder, unspecified; F17.200 Nicotine dependence, unspecified, uncomplicated; Z86.14 Personal history of Methicillin resistant Staphylococcus aureus infection; Z79.899 Other long term (current) drug therapy; Z88.1 Allergy status to other antibiotic agents; Z98.890 Other specified postprocedural states
CPT/HCPCS: 36415; 80048; 85025; 73590; 99284; 96374; 96376; J2270

== ENCOUNTER 2017-10-25 00:26 | Emergency (ER) | payer OTHER ==
[2017-10-25 00:33] VITALS: BP 150/86; PULSE 100; RESP 18; TEMP 97.9
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
== END 2017-10-25 01:33 | disposition home or self-care (01) ==
LOC: EC 00:26
DX: M79.661 Pain in right lower leg (principal); Z76.5 Malingerer [conscious simulation]; R11.0 Nausea; I10 Essential (primary) hypertension; F41.9 Anxiety disorder, unspecified; F31.9 Bipolar disorder, unspecified; M19.90 Unspecified osteoarthritis, unspecified site; F17.200 Nicotine dependence, unspecified, uncomplicated; Z86.14 Personal history of Methicillin resistant Staphylococcus aureus infection; Z98.890 Other specified postprocedural states; Z88.1 Allergy status to other antibiotic agents; Z79.899 Other long term (current) drug therapy
CPT/HCPCS: 99282

== ENCOUNTER 2017-11-20 20:50 | Emergency (ER) | payer OTHER ==
[2017-11-20 21:04] VITALS: BP 173/101; PULSE 123; RESP 22; TEMP 98.5
[2017-11-20] MEDS ORDERED: LORazepam 1 MG TAB PO STA (21:14)
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
== END 2017-11-20 22:55 | disposition home or self-care (01) ==
LOC: EC 20:50
DX: F41.9 Anxiety disorder, unspecified (principal); F19.10 Other psychoactive substance abuse, uncomplicated; I10 Essential (primary) hypertension; M19.90 Unspecified osteoarthritis, unspecified site; F32.9 Major depressive disorder, single episode, unspecified; F17.200 Nicotine dependence, unspecified, uncomplicated; Z86.14 Personal history of Methicillin resistant Staphylococcus aureus infection; Z79.899 Other long term (current) drug therapy; Z79.891 Long term (current) use of opiate analgesic; Z88.1 Allergy status to other antibiotic agents
CPT/HCPCS: 82075; 93005; 99285

== ENCOUNTER → 2017-11-29 | Outpatient (CLI) | payer OTHER ==
[2017-11-29 09:03] LABS: Anisocytosis Slight; Basophils # (A) 0.1 k/uL (0-0.2); Basophils % (A) 1 %; Eosinophils # (A) 0.2 k/uL (0-0.7); Eosinophils % (A) 3 %; HCT 35.9 % (34.0-46.0); HGB 11.1 gm/dL (11.4-16.0); Hypochromasia Moderate; Lymphocytes # (A) 2.6 k/uL (1.0-4.8); Lymphocytes % (A) 29 %; MCH 25.5 pg (25.0-35.0); MCV 82.4 fL (80.0-100.0); Mean Platelet Volume 7.5; Monocytes # (A) 0.7 k/uL (0-1.0); Monocytes % (A) 7 %; Neutrophils # (A) 5.3 k/uL (1.3-7.7); Neutrophils % (A) 58 %; Platelet Count 389 k/uL (150-450); RBC 4.35 m/uL (3.80-5.40); RDW 17.3 % (11.5-15.5); WBC 9.1 k/uL (3.8-10.6)
[2017-11-29 09:22] LABS: ALT 20 U/L (9-52); AST 16 U/L (14-36); Albumin 3.6 g/dL (3.5-5.0); Alkaline Phosphatase 82 U/L (38-126); Anion Gap 9 mmol/L; Blood Urea Nitrogen 14 mg/dL (7-17); Calcium 8.9 mg/dL (8.4-10.2); Carbon Dioxide 24 mmol/L (22-30); Chloride 108 mmol/L (98-107); Cholesterol 126 mg/dL (<200); Glucose 95 mg/dL (74-99); HDL Cholesterol 61 mg/dL (40-60); LDL Cholesterol,Calculated 46 mg/dL (0-99); Sodium 141 mmol/L (137-145); Total Bilirubin 0.2 mg/dL (0.2-1.3); Total Protein 6.4 g/dL (6.3-8.2); Triglycerides 95 mg/dL (<150)
[2017-11-29 20:21] LABS: Hemoglobin A1C 5.2 % (4.0-6.0)
== END | disposition home or self-care (01) ==
LOC: LABWHC1 08:13
PROVIDERS: ATTEND Nurse Practitioner Family
DX: I10 Essential (primary) hypertension (principal); F31.31 Bipolar disorder, current episode depressed, mild; E55.9 Vitamin D deficiency, unspecified
CPT/HCPCS: 36415; 80053; 80061; 82306; 83036; 84443; 85025

== ENCOUNTER 2018-02-27 16:21 | Emergency (ER) | payer MEDICARE, OTHER ==
[2018-02-27 17:57] LABS: Anisocytosis Slight; Basophils % (A) 1 %; Eosinophils # (A) 0.1 k/uL (0-0.7); Eosinophils % (A) 1 %; HCT 37.7 % (34.0-46.0); HGB 12.1 gm/dL (11.4-16.0); Lymphocytes # (A) 1.7 k/uL (1.0-4.8); Lymphocytes % (A) 23 %; MCHC 32.2 g/dL (31.0-37.0); MCV 86.9 fL (80.0-100.0); Monocytes # (A) 0.5 k/uL (0-1.0); Monocytes % (A) 7 %; Neutrophils # (A) 5.1 k/uL (1.3-7.7); Neutrophils % (A) 67 %; Platelet Count 352 k/uL (150-450); RBC 4.33 m/uL (3.80-5.40); RDW 18.3 % (11.5-15.5); WBC 7.6 k/uL (3.8-10.6)
[2018-02-27 18:16] LABS: Anion Gap 11 mmol/L; Blood Urea Nitrogen 6 mg/dL (7-17); Carbon Dioxide 21 mmol/L (22-30); Chloride 109 mmol/L (98-107); Glucose 88 mg/dL (74-99); Potassium 3.9 mmol/L (3.5-5.1); Sodium 141 mmol/L (137-145)
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
--- NOTE | 2018-02-27 19:33 | XR ---
EXAMINATION TYPE: XR chest 2V DATE OF EXAM: 02/27/2018 COMPARISON: 12/13/2016 HISTORY: Chest pain TECHNIQUE: Frontal and lateral views of the chest are obtained. FINDINGS: There is coarsening of interstitial markings in the mid and lower lung boss. There is li near density at the lung bases. There is no gross heart failure. Heart size is normal. There is no pl eural effusion. IMPRESSION: There are interstitial infiltrates and atelectasis at the lung bases and midlung boss that is worse than last exam. Normal heart. No gross heart failure. No rib fracture seen.
[2018-02-27 19:34] VITALS: BP 144/88; PULSE 72; RESP 18; TEMP 97.6
--- NOTE | 2018-02-27 19:34 | XR ---
EXAMINATION TYPE: XR tibia fibula LT DATE OF EXAM: 02/27/2018 COMPARISON: NONE HISTORY: Left leg pain and swelling. Wound on the left leg. TECHNIQUE: 3 views FINDINGS: The tibia and fibula appear intact. I see no fracture. There appears to be anterior soft ti ssue swelling at the mid tibia on the lateral view. Knee joint space is normal. Ankle mortise is ronni omic. IMPRESSION: Soft tissue swelling anteriorly. No fracture seen. No evidence of osteomyelitis.
--- NOTE | 2018-03-02 06:47 | CDI ---
Documentation Clarification OP Dear Dr. Blanca Mccullough Please provide hematoma location. Thank you, Sundeep [place] Safety Engineer If you have any questions, please contact Emergency Medicine Physician at [phone] [facility]
== END 2018-02-27 20:05 | disposition left against medical advice (07) ==
LOC: EC 16:21
DX: S80.12XA Contusion of left lower leg, initial encounter (principal); M79.605 Pain in left leg; R79.89 Other specified abnormal findings of blood chemistry; R00.0 Tachycardia, unspecified; R07.9 Chest pain, unspecified; J98.11 Atelectasis; R91.8 Other nonspecific abnormal finding of lung field; I10 Essential (primary) hypertension; F32.9 Major depressive disorder, single episode, unspecified; F41.9 Anxiety disorder, unspecified; F17.200 Nicotine dependence, unspecified, uncomplicated; Z86.14 Personal history of Methicillin resistant Staphylococcus aureus infection; Z79.899 Other long term (current) drug therapy; Z88.1 Allergy status to other antibiotic agents; V49.9XXA Car occupant (driver) (passenger) injured in unspecified traffic accident, initial encounter; Y92.410 Unspecified street and highway as the place of occurrence of the external cause
CPT/HCPCS: 36415; 71046; 80048; 82550; 83880; 84484; 85025; 85379; 93005; 99284

== ENCOUNTER 2018-04-12 16:22 | Emergency (ER) | payer MEDICARE, OTHER ==
[2018-04-12] MEDS ORDERED: ONDANSETRON 4 MG/2 ML VIAL IVP STA (16:41)
[2018-04-12] MEDS ORDERED: SODIUM CHLORIDE 0.9% 1,000 ML IV STA (16:41)
[2018-04-12] MEDS ORDERED: LORazepam 2 MG/ML INJ IV STA (16:42)
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
[2018-04-12 17:30] LABS: Basophils % (A) 0 %; Eosinophils % (A) 1 %; HCT 49.3 % (34.0-46.0); Lymphocytes # (A) 1.5 k/uL (1.0-4.8); Lymphocytes % (A) 20 %; MCH 28.2 pg (25.0-35.0); Mean Platelet Volume 7.4; Monocytes # (A) 0.4 k/uL (0-1.0); Monocytes % (A) 6 %; Neutrophils # (A) 5.1 k/uL (1.3-7.7); Neutrophils % (A) 71 %; Platelet Count 404 k/uL (150-450); RDW 15.5 % (11.5-15.5); WBC 7.2 k/uL (3.8-10.6)
[2018-04-12 17:37] LABS: HGB 15.8 gm/dL (11.4-16.0)
[2018-04-12 17:40] LABS: ALT 22 U/L (9-52); AST 42 U/L (14-36); Albumin 4.3 g/dL (3.5-5.0); Alkaline Phosphatase 64 U/L (38-126); Amylase 41 U/L (30-110); Anion Gap 10 mmol/L; Blood Urea Nitrogen 6 mg/dL (7-17); Calcium 9.8 mg/dL (8.4-10.2); Carbon Dioxide 23 mmol/L (22-30); Chloride 107 mmol/L (98-107); Glucose 114 mg/dL (74-99); Lipase 59 U/L (23-300); Sodium 140 mmol/L (137-145); Total Bilirubin 0.9 mg/dL (0.2-1.3); Total Protein 7.2 g/dL (6.3-8.2)
[2018-04-12 17:42] LABS: Potassium 4.6 mmol/L (3.5-5.1)
[2018-04-12 18:38] LABS: Appearance,Urine Cloudy (Clear); Bacteria,Urine Occasional /hpf; Bilirubin,Urine Negative (Negative); Blood,Urine Negative (Negative); Color,Urine Yellow; Glucose,Urine (UA) Trace (Negative); Hyaline Casts,Urine 10 /lpf (0-2); Ketones,Urine Negative (Negative); Leukocyte Esterase,Urine Negative (Negative); Mucus,Urine Few /hpf; Nitrite,Urine Negative (Negative); PH, Urine 8.5 (5.0-8.0); Protein,Urine 2+ (Negative); Specific Gravity,Urine 1.008 (1.001-1.035); Squamous Epithelial Cell,Urine 2 /hpf (0-4); Urobilinogen,Urine <2.0 mg/dL (<2.0); WBC,Urine 3 /hpf (0-5)
[2018-04-12 19:09] VITALS: BP 126/88; PULSE 61; RESP 18; TEMP 98.1
== END 2018-04-12 19:12 | disposition home or self-care (01) ==
LOC: EC 16:22
DX: R11.2 Nausea with vomiting, unspecified (principal); F41.9 Anxiety disorder, unspecified; F31.9 Bipolar disorder, unspecified; I10 Essential (primary) hypertension; M19.90 Unspecified osteoarthritis, unspecified site; F17.200 Nicotine dependence, unspecified, uncomplicated; Z86.14 Personal history of Methicillin resistant Staphylococcus aureus infection; Z79.899 Other long term (current) drug therapy; Z88.1 Allergy status to other antibiotic agents
CPT/HCPCS: 36415; 80053; 82150; 83690; 85025; 81001; 81025; 99284; 96374; 96375; 96361; J2060; J2405

== ENCOUNTER 2018-06-12 18:48 | Emergency (ER) | payer MEDICARE, OTHER ==
[2018-06-12 18:59] VITALS: BP 132/78; PULSE 110; RESP 18; TEMP 98.2
[2018-06-12] MEDS ORDERED: ACET/COD 300 MG/30 MG STARTER PACK 6 TAB BTL PO STA (19:19)
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
== END 2018-06-12 19:45 | disposition home or self-care (01) ==
LOC: EC 18:48
DX: K13.70 Unspecified lesions of oral mucosa (principal); I10 Essential (primary) hypertension; F41.9 Anxiety disorder, unspecified; F32.9 Major depressive disorder, single episode, unspecified; F17.200 Nicotine dependence, unspecified, uncomplicated; Z86.14 Personal history of Methicillin resistant Staphylococcus aureus infection; Z79.899 Other long term (current) drug therapy; Z88.1 Allergy status to other antibiotic agents
CPT/HCPCS: 99282

== ENCOUNTER 2018-07-20 11:44 | Emergency (ER) | payer MEDICARE, OTHER ==
[2018-07-20] MEDS ORDERED: SODIUM CHLORIDE 0.9% 500 ML 500 ML IV STA (11:50)
[2018-07-20 11:56] VITALS: RESP 18; TEMP 98.8
[2018-07-20 12:50] LABS: Basophils % (A) 1 %; Eosinophils # (A) 0.1 k/uL (0-0.7); Eosinophils % (A) 2 %; HCT 36.9 % (34.0-46.0); Lymphocytes # (A) 1.6 k/uL (1.0-4.8); Lymphocytes % (A) 28 %; MCH 30.6 pg (25.0-35.0); MCHC 32.4 g/dL (31.0-37.0); MCV 94.4 fL (80.0-100.0); Mean Platelet Volume 7.1; Monocytes # (A) 0.3 k/uL (0-1.0); Monocytes % (A) 6 %; Neutrophils # (A) 3.5 k/uL (1.3-7.7); Neutrophils % (A) 62 %; Platelet Count 335 k/uL (150-450); RBC 3.91 m/uL (3.80-5.40); RDW 14.5 % (11.5-15.5); WBC 5.6 k/uL (3.8-10.6)
[2018-07-20 12:58] LABS: ALT 25 U/L (9-52); AST 35 U/L (14-36); Albumin 3.7 g/dL (3.5-5.0); Alcohol <10 mg/dL; Alkaline Phosphatase 71 U/L (38-126); Anion Gap 5 mmol/L; Blood Urea Nitrogen 12 mg/dL (7-17); Calcium 9.2 mg/dL (8.4-10.2); Carbon Dioxide 25 mmol/L (22-30); Chloride 108 mmol/L (98-107); Glucose 75 mg/dL (74-99); Potassium 4.3 mmol/L (3.5-5.1); Sodium 138 mmol/L (137-145); Total Bilirubin 0.3 mg/dL (0.2-1.3); Total Protein 6.5 g/dL (6.3-8.2)
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
--- NOTE | 2018-07-20 13:26 | CT ---
EXAMINATION TYPE: CT brain wo con DATE OF EXAM: 07/20/2018 COMPARISON: None HISTORY: Seizures CT DLP: 1196.4 mGycm. Automated Exposure Control for Dose Reduction was Utilized. TECHNIQUE: CT scan of the head is performed without contrast. FINDINGS: There is no acute intracranial hemorrhage, mass effect, or midline shift identified. The ventricles and sulci are within normal limits in size. Prominent cisterna magna noted. Calcification along the tentorium on the left incidentally noted. There are two Calcifications are seen within the fourth ventricle likely related to choroid plexus. C alcification the right basal ganglia also noted. IMPRESSION: No acute intracranial hemorrhage, mass effect, or midline shift is seen. Recommend follo w-up MRI in a patient with adult onset seizure.
[2018-07-20 14:11] LABS: Appearance,Urine Clear (Clear); Bilirubin,Urine Negative (Negative); Blood,Urine Negative (Negative); Color,Urine Yellow; Glucose,Urine (UA) Negative (Negative); Ketones,Urine Negative (Negative); Leukocyte Esterase,Urine Negative (Negative); Nitrite,Urine Negative (Negative); PH, Urine 6.5 (5.0-8.0); Protein,Urine Negative (Negative); Urobilinogen,Urine <2.0 mg/dL (<2.0)
[2018-07-20 14:23] LABS: Amphetamine Screen,Urine Not Detected (NotDetected); Barbiturate Screen,Urine Not Detected (NotDetected); Benzodiazepines Screen,Urine Not Detected (NotDetected); Cocaine Screen,Urine Detected (NotDetected); Methadone Screen, Urine Not Detected (NotDetected); Opiate Screen,Urine Not Detected (NotDetected); Oxycodone Screen, Urine Not Detected (NotDetected); Phencyclidine Screen,Urine Not Detected (NotDetected); Tricyclic Antidepressant,Urine Detected (NotDetected); Urn Cannabinoid Scrn Detected (NotDetected)
[2018-07-20 15:13] VITALS: BP 115/81; PULSE 89
== END 2018-07-20 15:13 | disposition home or self-care (01) ==
LOC: EC 11:44
DX: R56.9 Unspecified convulsions (principal); R00.0 Tachycardia, unspecified; I10 Essential (primary) hypertension; M19.90 Unspecified osteoarthritis, unspecified site; F41.9 Anxiety disorder, unspecified; F31.9 Bipolar disorder, unspecified; F17.200 Nicotine dependence, unspecified, uncomplicated; Z86.14 Personal history of Methicillin resistant Staphylococcus aureus infection; Z98.890 Other specified postprocedural states; Z79.899 Other long term (current) drug therapy; Z88.1 Allergy status to other antibiotic agents
CPT/HCPCS: 36415; 93005; 80053; 84484; 85025; 81003; 81025; 80306; 70450; 99285; 96360; G0480; 80320

== ENCOUNTER → 2018-08-28 | Outpatient (CLI) | payer MEDICARE, OTHER ==
[2018-08-28 07:34] LABS: Basophils # (A) 0.1 k/uL (0-0.2); Basophils % (A) 1 %; Eosinophils # (A) 0.1 k/uL (0-0.7); Eosinophils % (A) 2 %; HGB 10.9 gm/dL (11.4-16.0); Hypochromasia Marked; Lymphocytes % (A) 33 %; MCH 29.1 pg (25.0-35.0); MCHC 30.3 g/dL (31.0-37.0); MCV 95.9 fL (80.0-100.0); Mean Platelet Volume 6.8; Monocytes # (A) 0.4 k/uL (0-1.0); Monocytes % (A) 7 %; Neutrophils # (A) 3.3 k/uL (1.3-7.7); Neutrophils % (A) 55 %; Platelet Count 366 k/uL (150-450); RBC 3.75 m/uL (3.80-5.40); RDW 14.8 % (11.5-15.5); WBC 6.1 k/uL (3.8-10.6)
[2018-08-28 11:36] LABS: Albumin 3.7 g/dL (3.80-4.90); Albumin/Globulin Ratio 2.06 (1.20-2.10); Anion Gap 3.3 mmol/L (4.00-12.00); Calcium 8.5 mg/dL (8.7-10.3); Carbon Dioxide 28.7 mmol/L (21.6-31.8); Globulin 1.8 g/dL (2.1-3.7); LDL Cholesterol,Calculated 62.2 mg/dL (0.0-131.0); Potassium 4.8 mmol/L (3.5-5.5); Total Bilirubin 0.2 mg/dL (0.2-1.2); Total Protein 5.5 g/dL (6.2-8.2); VLDL Calculation 23.8 mg/dL (5.00-40.00)
[2018-08-28 11:37] LABS: Vitamin D 25 Hydroxy 21.5 ng/mL (30.0-100.0)
[2018-08-28 11:54] LABS: Hepatitis C IgG Antibody Non-Reactive (Non-Reactive)
[2018-08-28 13:26] LABS: Hemoglobin A1C 5.1 % (4.0-6.0)
[2018-08-28 17:22] LABS: Hepatitis B Surface AB- Quant 3.5 mIU/mL
== END | disposition home or self-care (01) ==
LOC: LABWHC1 06:37
PROVIDERS: ATTEND Nurse Practitioner Family
DX: I10 Essential (primary) hypertension (principal); E55.9 Vitamin D deficiency, unspecified; Z72.51 High risk heterosexual behavior
CPT/HCPCS: 36415; 80053; 80061; 82306; 83036; 84443; 85025; 86706; 86780; 86803

== ENCOUNTER 2018-09-19 19:23 | Emergency (ER) | payer MEDICARE, OTHER ==
[2018-09-19] MEDS ORDERED: ACET/COD 300 MG/30 MG STARTER PACK 6 TAB BTL PO STA (21:22)
[2018-09-19] MEDS ORDERED: PENICILLIN VK 500MG STARTER 4 TAB BTL PO STA (21:22)
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
[2018-09-19 21:44] VITALS: BP 129/73; PULSE 74; RESP 18; TEMP 97.4
== END 2018-09-19 21:40 | disposition home or self-care (01) ==
LOC: EC 19:23
DX: K04.7 Periapical abscess without sinus (principal); K03.81 Cracked tooth; K02.9 Dental caries, unspecified; I10 Essential (primary) hypertension; F31.9 Bipolar disorder, unspecified; F41.9 Anxiety disorder, unspecified; F17.200 Nicotine dependence, unspecified, uncomplicated; Z88.1 Allergy status to other antibiotic agents; Z79.899 Other long term (current) drug therapy; Z86.14 Personal history of Methicillin resistant Staphylococcus aureus infection
CPT/HCPCS: 99282

== ENCOUNTER 2019-02-04 18:02 | Emergency (ER) | payer MEDICARE, OTHER ==
[2019-02-04 18:18] VITALS: BP 130/79; PULSE 108; RESP 18; TEMP 98.2
[2019-02-04] MEDS ORDERED: PENICILLIN VK 500MG STARTER 4 TAB BTL PO STA (19:10)
[2019-02-04] MEDS ORDERED: ACET/COD 300 MG/30 MG STARTER PACK 6 TAB BTL PO STA (19:10)
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
== END 2019-02-04 19:33 | disposition home or self-care (01) ==
LOC: EC 18:02
DX: K04.7 Periapical abscess without sinus (principal); K02.9 Dental caries, unspecified; S02.5XXA Fracture of tooth (traumatic), initial encounter for closed fracture; K13.79 Other lesions of oral mucosa; I10 Essential (primary) hypertension; F32.9 Major depressive disorder, single episode, unspecified; F41.9 Anxiety disorder, unspecified; F17.200 Nicotine dependence, unspecified, uncomplicated; Z88.1 Allergy status to other antibiotic agents; Z79.891 Long term (current) use of opiate analgesic; Z79.899 Other long term (current) drug therapy; Z86.14 Personal history of Methicillin resistant Staphylococcus aureus infection; Z87.39 Personal history of other diseases of the musculoskeletal system and connective tissue; X58.XXXA Exposure to other specified factors, initial encounter
CPT/HCPCS: 99282

== ENCOUNTER 2019-02-11 20:21 | Emergency (ER) | payer MEDICARE, OTHER ==
[2019-02-11 20:34] VITALS: RESP 18
[2019-02-11] MEDS ORDERED: ACETAMINOPHEN TAB 500 MG TAB PO STA (20:44)
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
--- NOTE | 2019-02-11 21:05 | XR ---
EXAMINATION TYPE: XR knee complete RT, XR tibia fibula RT DATE OF EXAM: 02/11/2019 CLINICAL HISTORY: Audible falls and worsening right knee pain TECHNIQUE: Three views of the right knee are obtained. Views of the right tibia and fibula were obta ined. COMPARISON: 10/22/2017 FINDINGS: There is a lateral fixation plate of the medial tibia traversing an old fracture deformity. There is no malalignment or fracture of the hardware or surgical screws. There is lateral and medial compartment joint space narrowing and patellofemoral compartment with a very small suprapatellar laura nt effusion. No acute fracture is seen of the right knee. Within the remainder of the tibia or fibula no acute fracture deformity is seen. No focal soft tissue swelling or radiopaque foreign body. Lucency is seen of the distal tibial diaphysis from prior surgi haile screws. IMPRESSION: 1. Postsurgical change of the right knee and moderate tricompartmental arthropathy without acute frac ture of the squaxin bone or hardware. 2. No acute fracture of the remainder of the tibia or fibula are seen.
[2019-02-11 21:58] VITALS: BP 124/78; PULSE 96; TEMP 98.5
[2019-02-11] MEDS ORDERED: LIDOCAINE 5% PATCH TOPICAL SCH (22:00)
== END 2019-02-11 22:01 | disposition home or self-care (01) ==
LOC: EC 20:21
DX: M25.561 Pain in right knee (principal); M17.11 Unilateral primary osteoarthritis, right knee; I10 Essential (primary) hypertension; F31.9 Bipolar disorder, unspecified; F41.9 Anxiety disorder, unspecified; F17.200 Nicotine dependence, unspecified, uncomplicated; Z79.899 Other long term (current) drug therapy; Z88.1 Allergy status to other antibiotic agents
CPT/HCPCS: 99283

== ENCOUNTER 2019-02-26 09:23 | Emergency (ER) | payer MEDICARE, OTHER ==
[2019-02-26 10:03] VITALS: BP 122/78; PULSE 96; RESP 18; TEMP 98.7
[2019-02-26] MEDS ORDERED: Acetaminophen-Codeine 300-30mg TAB PO STA (10:25)
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
== END 2019-02-26 10:37 | disposition home or self-care (01) ==
LOC: EC 09:23
DX: K08.9 Disorder of teeth and supporting structures, unspecified (principal); K02.9 Dental caries, unspecified; F32.9 Major depressive disorder, single episode, unspecified; I10 Essential (primary) hypertension; F17.200 Nicotine dependence, unspecified, uncomplicated; Z79.899 Other long term (current) drug therapy; Z88.1 Allergy status to other antibiotic agents; Z86.14 Personal history of Methicillin resistant Staphylococcus aureus infection
CPT/HCPCS: 99282

== ENCOUNTER → 2019-04-25 | Outpatient (CLI) | payer MEDICARE, OTHER ==
--- NOTE | 2019-04-25 14:24 | XR ---
EXAMINATION TYPE: XR cervical spine comp DATE OF EXAM: 04/25/2019 COMPARISON: NONE HISTORY: Chronic pain TECHNIQUE: Four views are submitted. FINDINGS: The odontoid is intact. There are no compression deformities. The prevertebral soft tissue structur es are within normal limits. Hypertrophic and degenerative change of the spine. Foraminal encroachme nt C5-C6. IMPRESSION: 1. Bilevel degenerative disc disease consider follow-up MRI.
--- NOTE | 2019-04-25 14:28 | XR ---
EXAMINATION TYPE: XR tibia fibula RT DATE OF EXAM: 04/25/2019 COMPARISON: NONE HISTORY: Pain TECHNIQUE: Two views are submitted. FINDINGS: The osseous structures are intact. Arthropathy of the knee joint noted with extensive postsurgical ch [place]. Tiny metallic plate and screws.. IMPRESSION: 1. Metallic plate and screws are seen within the proximal tibia. The composition should be determined prior to MRI clearance..
--- NOTE | 2019-04-25 14:28 | XR ---
EXAM TYPE: LUMBAR SPINE X RAY SERIES COMPARISON: NONE HISTORY: Pain TECHNIQUE: 4 views are submitted. FINDINGS: Alignment is anatomic. The pedicles are intact. The transverse processes are intact. There is no s pondylolysis or spondylolisthesis. Hypertrophic and degenerative changes seen with multilevel facet arthropathy. IMPRESSION: 1. No acute process.
== END | disposition home or self-care (01) ==
LOC: RADXRMAIN 13:55
PROVIDERS: ATTEND Psychiatry & Neurology Neurology
DX: M50.30 Other cervical disc degeneration, unspecified cervical region (principal); M54.5 Low back pain; S82.402A Unspecified fracture of shaft of left fibula, initial encounter for closed fracture
CPT/HCPCS: 72050; 72110

== ENCOUNTER 2019-05-12 20:40 | Emergency (ER) | payer MEDICARE, OTHER ==
[2019-05-12 20:57] VITALS: BP 140/87; PULSE 111; RESP 20; TEMP 98.3
[2019-05-12] MEDS ORDERED: KETOROLAC 30 MG/ML 1 ML VIAL IM STA (21:31)
[2019-05-12] MEDS ORDERED: Acetaminophen-Codeine 300-30mg TAB PO STA (22:12)
--- NOTE | 2019-05-12 22:23 | XR ---
EXAM: XR Left Knee, 3 views XR Right Knee, 3 views CLINICAL HISTORY: Pain TECHNIQUE: Three views of the bilateral knees. COMPARISON: 02/11/19 FINDINGS: Bones/joints: Unremarkable. No acute fracture. No dislocation. No change in alignment of the right knee were compared to the prior study. No significant joint effusion Soft tissues: Unremarkable. IMPRESSION: No evidence for fracture or malalignment left or right knee
--- NOTE | 2019-05-12 22:31 | XR ---
EXAM: XR Lumbar Spine, 2 or 3 Views CLINICAL HISTORY: : Pain TECHNIQUE: Frontal and lateral views of the lumbar spine. COMPARISON: 04/25/19 FINDINGS: Vertebrae: Unremarkable. No acute fracture. Normal alignment. Disc spaces: No acute findings. No significant narrowing. Soft tissues: Unremarkable. IMPRESSION: No evidence for fracture or malalignment lumbar spine no change compared to the prior study of 04/25/19.
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
== END 2019-05-12 22:53 | disposition home or self-care (01) ==
LOC: EC 20:40
DX: Z04.3 Encounter for examination and observation following other accident (principal); I10 Essential (primary) hypertension; F41.9 Anxiety disorder, unspecified; F31.9 Bipolar disorder, unspecified; F17.200 Nicotine dependence, unspecified, uncomplicated; Z79.899 Other long term (current) drug therapy; Z88.1 Allergy status to other antibiotic agents
CPT/HCPCS: 73562; 72100; 99283; 96372; J1885

== ENCOUNTER → 2019-05-29 | Outpatient (CLI) | payer MEDICARE, OTHER ==
--- NOTE | 2019-05-29 23:05 | MR ---
EXAMINATION TYPE: MR cervical spine wo con DATE OF EXAM: 05/29/2019 COMPARISON: None HISTORY: Neck pain, stiffness, rt arm pain/weakness TECHNIQUE: Multiplanar, multisequence images of the cervical spine were acquired. Cervical vertebra have normal alignment. Disc spaces are fairly normal. There are small posterior dis c bulges at C5-6 C6-7 with mild encroachment on the spinal canal. The canal is narrowed to 7 mm at C5 -6. Canal is 8 mm at C4-5 and 7 mm at C6-7. Cervical cord shows no edema. Brainstem is intact. There is developmentally small spinal canal. The posterior elements are intact. There is no evidence of bon y destructive process. There is no sign of cervical paraspinal mass. IMPRESSION: Mild posterior disc bulging at C5-6 C6-7. There is a mild relative spinal stenosis. No cord edema. No fracture.
== END | disposition home or self-care (01) ==
LOC: RADMRIMAIN 16:11
PROVIDERS: ATTEND Psychiatry & Neurology Neurology
DX: M48.02 Spinal stenosis, cervical region (principal); M50.222 Other cervical disc displacement at C5-C6 level
CPT/HCPCS: 72141

== ENCOUNTER → 2020-10-25 | Outpatient (CLI) | payer MEDICARE, OTHER ==
--- NOTE | 2020-10-25 09:56 | MR ---
EXAMINATION TYPE: MR lumbar spine wo con DATE OF EXAM: 10/25/2020 COMPARISON: None HISTORY: Low back pain TECHNIQUE: Multiplanar, multisequence images of the lumbar spine were acquired. Findings: The lumbar vertebral segments are normal in height and alignment fracture or subluxation. There is mild degenerative disc disease with mild disc space narrowing at the L3-4 and L4-5 levels. T here are no lumbar disc herniation. There is moderate hypertrophy of the facets at the L3-4 L4-5 levels. Secondary to facet hypertrophy and thickening of the ligamentum flavum, there is mild spinal stenosis at the L3-4 level and moderate spinal stenosis at the L4-5 level. The sacrum and SI joints appear normal. There is severe neural foraminal encroachment at the L3-4 level in the left and moderate neural barry inal encroachment at L4-5 level on the right. Visualized sacrum and SI joints appear normal. The paraspinal soft tissues are unremarkable. IMPRESSION: 1. Mild degenerative disc disease at the L3-4 and L4-5 levels. No disc herniation. 2. Spinal stenosis and neuroforaminal stenosis as described above. 3. No lumbar spine fracture or malalignment. 4. Facet degeneration as described above.
== END | disposition home or self-care (01) ==
LOC: RADMRIMAIN 08:39
PROVIDERS: ATTEND Psychiatry & Neurology Neurology
DX: M48.061 Spinal stenosis, lumbar region without neurogenic claudication (principal); M51.36 Other intervertebral disc degeneration, lumbar region
CPT/HCPCS: 72148

== ENCOUNTER → 2021-01-01 | Outpatient (CLI) | payer MEDICARE, OTHER ==
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
== END | disposition home or self-care (01) ==
LOC: RADXRMAIN 13:08
PROVIDERS: ATTEND Neurological Surgery
DX: M51.36 Other intervertebral disc degeneration, lumbar region (principal); M43.16 Spondylolisthesis, lumbar region; M47.816 Spondylosis without myelopathy or radiculopathy, lumbar region
CPT/HCPCS: 72114

== ENCOUNTER → 2021-01-01 | Outpatient (CLI) | payer MEDICARE, OTHER ==
--- NOTE | 2021-01-02 10:07 | ECHOF ---
Referral Reason:I10 hypertension, R07.9 chest pain MEASUREMENTS -------- HEIGHT: 180.3 cm WEIGHT: 104.3 kg BP: RVIDd: 2.7 cm (< 3.3) IVSd: 1.2 cm (0.6 - 1.1) LVIDd: 4.7 cm (3.9 - 5.3) LVPWd: 1.3 cm (0.6 - 1.1) IVSs: 1.6 cm LVIDs: 3.1 cm LVPWs: 1.8 cm LAESV Index (A-L): 28.49 ml/m Ao Diam: 2.7 cm (2.0 - 3.7) AV Cusp: 1.8 cm (1.5 - 2.6) LA Diam: 4.0 cm (2.7 - 3.8) MV EXCURSION: 10.667 mm (> 18.000) MV EF SLOPE: 88 mm/s (70 - 150) EPSS: 0.8 cm MV E Hudson: 0.90 m/s MV DecT: 108 ms MV A Hudson: 0.62 m/s MV E/A Ratio: 1.45 RAP: 5.00 mmHg RVSP: 14.11 mmHg FINDINGS -------- This was a technically good study. The left ventricular size is normal. There is mild concentric left ventricular hypertrophy. Overa ll left ventricular systolic function is normal with, an EF between 55 - 60 %. The diastolic fillin g pattern is normal for the age of the patient {E/E'}. The right ventricle is normal in size. The left atrial size is normal. Normal LA size by volume 22+/-6 ml/m2. The right atrial size is normal. The aortic valve is trileaflet and appears structurally normal. The mitral valve is normal. There is trace mitral regurgitation. The tricuspid valve appears structurally normal. Trace tricuspid regurgitation present. Right shaye tricular systolic pressure is normal at < 35 mmHg. There is no pulmonic regurgitation present. The aortic root size is normal. Normal inferior vena cava with normal inspiratory collapse consistent with estimated right atrial pre ssure of 5 mmHg. There is no pericardial effusion. CONCLUSIONS -------- 1. The left ventricular size is normal. 2. There is mild concentric left ventricular hypertrophy. 3. Overall left ventricular systolic function is normal with, an EF between 55 - 60 %. 4. The diastolic filling pattern is normal for the age of the patient {E/E'} 5. There is trace mitral regurgitation. 6. Trace tricuspid regurgitation present. 7. There is no pericardial effusion. AVIONICS SYSTEMS TECHNICIAN: Temi Ortega RDCS
== END | disposition home or self-care (01) ==
LOC: RADECHMAIN 13:03
PROVIDERS: ATTEND Internal Medicine
DX: I08.1 Rheumatic disorders of both mitral and tricuspid valves (principal)
CPT/HCPCS: 93306

== ENCOUNTER 2021-08-07 15:47 | Emergency (ER) | payer MEDICARE, OTHER ==
[2021-08-07 15:51] VITALS: BP 123/83; PULSE 94; RESP 20; TEMP 98.3
[2021-08-07] MEDS ORDERED: ONDANSETRON ODT 4 MG TAB PO STA (18:13)
[2021-08-07] MEDS ORDERED: HYDROmorphone 1 MG/ML 1 ML SYRINGE IM STA (18:13)
[2021-08-07] MEDS ORDERED: ORPHENADRINE 30 MG/ML 2 ML VIAL IM STA (18:13)
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
== END 2021-08-07 19:57 | disposition home or self-care (01) ==
LOC: EC 15:47
DX: M54.50 Low back pain, unspecified (principal); I10 Essential (primary) hypertension; M19.90 Unspecified osteoarthritis, unspecified site; F31.9 Bipolar disorder, unspecified; F41.9 Anxiety disorder, unspecified; F12.90 Cannabis use, unspecified, uncomplicated; Z87.891 Personal history of nicotine dependence; Z79.1 Long term (current) use of non-steroidal anti-inflammatories (NSAID); Z79.52 Long term (current) use of systemic steroids; Z79.899 Other long term (current) drug therapy; X50.1XXA Overexertion from prolonged static or awkward postures, initial encounter
CPT/HCPCS: 99283; 96372 ×2; J2360; J1170

== ENCOUNTER → 2021-10-13 | Outpatient (CLI) | payer MEDICARE ==
[2021-10-13 13:29] VITALS: BP 125/84; PULSE 85; RESP 18; TEMP 98.6
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
== END ==
LOC: WWCWWP 13:05
PROVIDERS: ATTEND Obstetrics & Gynecology
DX: Z01.419 Encounter for gynecological examination (general) (routine) without abnormal findings (principal); I10 Essential (primary) hypertension; M19.90 Unspecified osteoarthritis, unspecified site; F41.9 Anxiety disorder, unspecified; F31.9 Bipolar disorder, unspecified; F17.210 Nicotine dependence, cigarettes, uncomplicated; Z88.1 Allergy status to other antibiotic agents

== ENCOUNTER → 2022-05-21 | Outpatient (CLI) | payer MEDICARE, OTHER ==
--- NOTE | 2022-05-24 12:02 | MM ---
Reason for Exam: Screening (asymptomatic). Patient History: Menarche at age 11. First Full-Term at age 22. Perimenopausal. Risk Values: Miguelina 5 year model risk: 0.8%. NCI Lifetime model risk: 9.4%. Tissue Density: There are scattered fibroglandular densities. Findings: Analyzed By CAD. There is no suspicious group of microcalcifications or suspicious mass in either breast. Benign round appearing calcifications within both breasts. Overall Assessment: Benign, BI-RAD 2 Management: Screening Mammogram of both breasts in 1 year. A clinical breast exam by your physician is recommended on an annual basis and results should be correlated with mammographic findings. Electronically signed and approved by: Jagjit Cristobal D.O.
== END | disposition home or self-care (01) ==
LOC: RADMAMWWP 13:59
PROVIDERS: ATTEND Family Medicine
DX: Z12.31 Encounter for screening mammogram for malignant neoplasm of breast (principal)
CPT/HCPCS: 77063; 77067

== ENCOUNTER 2022-12-17 10:49 | Emergency (ER) | payer MEDICARE, OTHER ==
[2022-12-17 11:17] VITALS: TEMP 99.4
[2022-12-17] MEDS ORDERED: ONDANSETRON 4 MG/2 ML VIAL IVP STA (11:18)
[2022-12-17] MEDS ORDERED: SODIUM CHLORIDE 0.9% 1,000 ML IV STA (11:18)
[2022-12-17] MEDS ORDERED: KETOROLAC 15 MG/ML 1 ML VIAL IVP STA (11:29)
[2022-12-17 11:51] LABS: Basophils % (A) 0 %; Eosinophils # (A) 0.1 k/uL (0-0.7); Eosinophils % (A) 1 %; HCT 42.3 % (34.0-46.0); HGB 15.1 gm/dL (11.4-16.0); Lymphocytes % (A) 20 %; MCH 32.3 pg (25.0-35.0); MCHC 35.7 g/dL (31.0-37.0); MCV 90.4 fL (80.0-100.0); Mean Platelet Volume 8.1; Monocytes # (A) 0.6 k/uL (0-1.0); Monocytes % (A) 5 %; Neutrophils # (A) 7.5 k/uL (1.3-7.7); Neutrophils % (A) 73 %; Platelet Count 325 k/uL (150-450); RBC 4.68 m/uL (3.80-5.40); RDW 13.2 % (11.5-15.5); WBC 10.4 k/uL (3.8-10.6)
[2022-12-17 12:06] LABS: ALT 23 U/L (4-34); AST 26 U/L (14-36); African American GFR (CKD) >90 (>60 ml/min/1.73 sqM); Albumin 4.3 g/dL (3.5-5.0); Alkaline Phosphatase 54 U/L (38-126); Anion Gap 10 mmol/L; Blood Urea Nitrogen 9 mg/dL (7-17); Calcium 10.2 mg/dL (8.4-10.2); Carbon Dioxide 28 mmol/L (22-30); Chloride 102 mmol/L (98-107); Glucose 111 mg/dL (74-99); Lipase 150 U/L (23-300); Non-African American GFR(CKD) >90 (>60 ml/min/1.73 sqM); Potassium 3.3 mmol/L (3.5-5.1); Sodium 140 mmol/L (137-145); Total Bilirubin 0.9 mg/dL (0.2-1.3); Total Protein 7.1 g/dL (6.3-8.2)
[2022-12-17] MEDS ORDERED: POTASSIUM CHLORIDE ER 20 MEQ TAB.ER PO STA (12:24)
[2022-12-17 13:03] LABS: Appearance,Urine Cloudy (Clear); Bacteria,Urine Many /hpf; Bilirubin,Urine Negative (Negative); Blood,Urine Negative (Negative); Calcium Oxalate Crystals,Urine Occasional /hpf; Color,Urine Yellow; Glucose,Urine (UA) Negative (Negative); Ketones,Urine Negative (Negative); Leukocyte Esterase,Urine Small (Negative); Mucus,Urine Moderate /hpf; Nitrite,Urine Negative (Negative); Protein,Urine 1+ (Negative); RBC,Urine 2 /hpf (0-5); Squamous Epithelial Cell,Urine 8 /hpf (0-4); Urobilinogen,Urine <2.0 mg/dL (<2.0); WBC,Urine 21 /hpf (0-5)
[2022-12-17] MEDS ORDERED: CIPROFLOXACIN HCL 500 MG TAB PO STA (13:15)
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
[2022-12-17 13:28] VITALS: BP 140/98; PULSE 88; RESP 16
== END 2022-12-17 13:34 | disposition home or self-care (01) ==
LOC: EC 10:49
DX: N12 Tubulo-interstitial nephritis, not specified as acute or chronic (principal); I10 Essential (primary) hypertension; F41.9 Anxiety disorder, unspecified; F32.A Depression, unspecified; F12.90 Cannabis use, unspecified, uncomplicated; F14.90 Cocaine use, unspecified, uncomplicated; Z88.1 Allergy status to other antibiotic agents; Z79.899 Other long term (current) drug therapy
CPT/HCPCS: 36415; 80053; 83690; 85025; 81001; 87086; 99284; 96374; 96375; 96361; J2405; J1885

== ENCOUNTER → 2023-10-04 | Outpatient (CLI) | payer OTHER ==
--- NOTE | 2023-10-05 10:01 | MM ---
Reason for Exam: Screening (asymptomatic). Last mammogram was performed 1 year(s) and 4 month(s) ago. Patient History: Menarche at age 11. First Full-Term at age 22. Perimenopausal. Risk Values: Miguelina 5 year model risk: 0.8%. NCI Lifetime model risk: 9.3%. Prior Study Comparison: 05/21/2022 Bilateral MG 3D screening mammo w/cad, [facility]. Tissue Density: There are scattered fibroglandular densities. Findings: Analyzed By CAD. There is no suspicious group of microcalcifications or new suspicious mass. Overall Assessment: Negative, BI-RAD 1 Management: Screening Mammogram of both breasts in [address] [facility] will attempt to contact patient to return for supplemental views and ultrasound if indicated. Patient should continue monthly self-breast exams. A clinical breast exam by your physician is recommended on an annual basis. This exam should not preclude additional follow-up of suspicious palpable abnormalities. Note on Miguelina scores and lifetime risk: 1. A Miguelina score greater than 3% is considered moderate risk. If this is the case, consider specialist referral to assess eligibility for a risk reducing agent. 2. If overall lifetime risk for the development of breast cancer is 20% or higher, the patient may qualify for future screening with alternating mammogram and breast MRI. Electronically signed and approved by: Jin Chen DO
== END | disposition home or self-care (01) ==
LOC: RADMAMWWP 13:31
PROVIDERS: ATTEND Family Medicine
DX: Z12.31 Encounter for screening mammogram for malignant neoplasm of breast (principal)
CPT/HCPCS: 77063; 77067